=== PATIENT | male | born 2000 | race African-American/Black ===

== ENCOUNTER 2020-06-19 20:15 | Emergency (ER) | payer SELFPAY ==
[~2020-06-19] VITALS: Ht 193 cm; Wt 100.0 kg
[2020-06-19] MEDS ORDERED: KETOROLAC 30MG/ML VIAL IV STA (20:36)
[2020-06-19] MEDS ORDERED: LORAZEPAM 2MG/ML CPJ IV ONE (20:45)
[2020-06-19] MEDS ORDERED: ONDANSETRON HCL 4MG/2ML INJ IV ONE (20:45)
[2020-06-19] MEDS ORDERED: ETOMIDATE 2MG/ML 10ML VIAL IV ONE (20:45)
[2020-06-19] MEDS ORDERED: MORPHINE SULFATE 2 MG/ML CPJ (NOT FOR IM USE) IV ONE (20:45)
[2020-06-20 01:32] VITALS: BP 130/61
== END 2020-06-20 01:21 | disposition home or self-care (01) ==
LOC: ER 20:15
DX: S43.004A Unspecified dislocation of right shoulder joint, initial encounter (principal); Y93.61 Activity, american tackle football; Y92.9 Unspecified place or not applicable
CPT/HCPCS: 23650; 73030; 93005; 96374; 96375; 99152; 99285; J1885; J2060; J2270; J2405; J3490; L3670